=== PATIENT | female | born 1955 | race Hispanic/Latino ===

== ENCOUNTER → 2018-12-06 | Outpatient (CLI) | payer OTHER ==
[~2018-12-06] MED LIST: REGADENOSON 0.4 MG/5 ML SYR IV ONE
--- NOTE | 2018-12-06 20:45 | Myoview Stress Test ---
DATE OF STUDY: 12/06/2018 09:26:00 Stress Test - Treadmill ONLY STUDY: Lexiscan stress myocardial perfusion study. PROCEDURE INDICATION: Chest pain. INTERPRETING AND SUPERVISING PHYSICIAN: Moy James MD, Interventional Cardiology. INTERPRETATION: At rest, heart rate 53, blood pressure 142/66. Resting EKG, normal sinus rhythm with nonspecific repolarization abnormality. After Lexiscan was administered, heart rate butch to 78 beats per minute and blood pressure increased to 147/62. There were no significant ST changes or arrhythmias throughout stress or recovery. Myocardial perfusion reveals a small-sized to moderate severity at mid anterior to apical anterior fixed rest and stress perfusion defect. Gated images demonstrate preserved left ventricular systolic function and normal regional wall motion and left ventricular ejection fraction of 63%. CONCLUSION: 1. Normal hemodynamic response to Lexiscan stress. 2. Normal electrocardiographic response to Lexiscan stress. 3. Normal myocardial perfusion at rest and stress. 4. Preserved left ventricular systolic function with left ventricular ejection fraction of 63%. Moy James MD AFV/MODL /[id number]
== END ==
LOC: NM 09:15
PROVIDERS: ATTEND Internal Medicine Cardiovascular Disease
DX: R07.9 Chest pain, unspecified (principal)
CPT/HCPCS: 78452; 93017; A9502; J2785